=== PATIENT | male | born 1985 | race Caucasian/White ===

== ENCOUNTER 2016-01-15 12:55 | Outpatient (RCR) | payer MEDICAID ==
[~2016-01-15 12:55] MED LIST: ALBU8.5H6 IH; CELE-63 PO; CYCL10TA45 PO; OXYC1TAB12 PO; OXYC60TA7 PO; PRAM0.128 PO; SUVO15TA PO; ZLP10T PO
--- NOTE | 2016-01-17 14:19 | PT/OT/ST INITIAL EVALUATION ---
[facility], [facility]. PHYSICAL/OCCUPATIONAL THERAPY [address] [place] [id number] PLAN OF CARE/ASSESSMENT FOR OUTPATIENT REHABILITATION (Complete for Initial Claims Only) 1. PATIENT'S NAME Roly Steele Jr. 2. ACC. No [id number] 3. REFERRING PHYSICIAN 4. PRIMARY DX Neck and upper back pain 5. SECONDARY DX 6. ONSET DATE 2012 7. REFERRAL DATE Self-referral 01/15/2016 8. SOC. DATE/TIME 01/15/2016 13:25 9. PRIOR LEVEL OF FUNCTION; PERTINENT HISTORY (Prior therapy results, reason for referral.) S: Prior to therapy, the patient did consent to the initial evaluation. The patient is a 30-year-old male who presents to physical therapy with neck and upper back pain that started in 2012. 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 His work requires him to carry and/or lift s 20 to 80 pound load up and down stairs and ladders. 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 The patient does note his pain has progressed significantly over the last 2 years. The pain is rated as a 5 to 7/10 on average, but can increase with activity. 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 Diagnostic tests: He has undergone x-rays and per his report, the x-rays are negative for any significant issues related to his spine. Aggravating factors: The patient notes that his pain is aggravated by bending, lifting, sitting for longer periods of time, as well as using ice. Relieving factors: Include taking Percocet; however this is minimally affective at this time, per his report. Past medical history: Includes stomach related issues and depression, as well as chronic neck and back pain. Patient's goal: The patient's goal is to have his pain go away. 10. INITIAL ASSESSMENT/SAFETY PRECAUTIONS/MEDICAL COMPLICATIONS (Level of function at start of care. Be specific, use objective measures, list problems.) O: APPEARANCE AND OBSERVATION: Observation of the patient's posture with shoulder movement revealed left scapular winging bilaterally, greatest on the left, specifically with shoulder internal rotation. He does demonstrate a rounded shoulder positioning bilaterally, greatest on the left. He also demonstrates significant anterior humeral head movement with shoulder motion. The PT notes the patient has antalgic movement when transitioning from xul-fu-lawclt and pnyrmd-xi-taz, as well as from sitting to standing. SPECIAL TESTING: The patient does have positive median nerve tension test on the right, negative radial, ulnar and median nerve tension test on the left. Negative cervical distraction and compression test, negative alar ligament test. MOBILITY: The patient is hypomobile through T5 through T8, as well as C4 through C6. ACTIVE RANGE OF MOTION: The patient demonstrates no significant active range of motion issues related to the bilateral shoulders, as well as the cervical spine. STRENGTH: Strength was assessed to be 5/5 for bilateral shoulder flexion, abduction, internal and external rotation. TODAY'S TREATMENT: Today's treatment consisted of initiating manual therapy to improve mobility in the thoracic spine, as well as education on stretching exercises with emphasis on not over stretching. 11. INITIAL POC: (Specify procedures, modalities, short and photograph mounter goals) A: The patient presents to physical therapy with chronic neck and upper back pain, which he relates to his job related activities. PROGNOSIS: This patient does have a good prognosis with regular attendance to physical therapy and compliance with him home exercises program, as well as activity modification recommendations. The patient would benefit from physical therapy services to decrease pain improve mobility throughout the cervical and thoracic spine, as well as improve body mechanics with functional work-related tasks. SHORT TERM GOALS TO BE MET IN 2 WEEKS: 1. The patient will report pain no greater than a 4/10 with shoulder movements, as well as transitional movements from sit to supine and supine to sit. 2. The patient will have normalized mobility throughout the cervical and thoracic spine. CRATE REPAIRER GOALS X 4 WEEKS: 1. The patient will demonstrate proper scapular stabilization with work-related lifting tasks. 2. The patient will report being able to return to work-related activities with pain no greater than a 3/10. P: Plan to see this patient 2 times a week for 4 weeks secondary to this frequency working best for his work schedule. Therapeutic interventions will include modalities as needed to address pain and muscle tightness, therapeutic exercise, emphasis on stabilization, neuromuscular reeducation, working on proprioceptive awareness of the shoulders and upper back, functional training, as well as progression of his home exercise program. Thank you for the referral of this patient. 13. PHYSICIAN SIGNATURE ? ON FILE OR ENTER HERE: 15. DATE: I certify the need for these services furnished under this plan of care and if for partial hospitalization. 16. CERTIFICATION FROM THROUGH
[2016-04-16] MEDS ORDERED: AMOX500C5 PO (09:41)
[2016-04-16] MEDS ORDERED: PRCD5U PO (09:41)
[2016-04-16] MEDS ORDERED: ALBU8.5H2 IH (09:46)
== END 2016-03-28 09:25 | disposition home or self-care (01) ==
LOC: PT 12:55
DX: M54.2 Cervicalgia (principal); M54.6 Pain in thoracic spine

== ENCOUNTER 2016-04-16 08:55 | Emergency (ER) | payer MEDICAID ==
[~2016-04-16] VITALS: Ht 182.9 cm; Wt 86.0 kg
[2016-04-16 09:41] LABS: INFLUENZA VIRUS TYPE A ANTIBOD Negative (NEGATIVE); INFLUENZA VIRUS TYPE B ANTIBOD Negative (NEGATIVE)
[2016-04-16 09:56] VITALS: BP 122/86
== END 2016-04-16 09:56 | disposition home or self-care (01) ==
LOC: EDUNIT# 08:55 → ED 08:58
DX: J20.9 Acute bronchitis, unspecified (principal); J01.00 Acute maxillary sinusitis, unspecified; F17.210 Nicotine dependence, cigarettes, uncomplicated
CPT/HCPCS: 87070; 87502; 87651; 99282; 99283

== ENCOUNTER 2016-06-28 21:23 | Emergency (ER) | payer MEDICAID ==
[~2016-06-28] VITALS: Ht 182.9 cm; Wt 86.0 kg
[~2016-06-28 21:23] MED LIST changes: +ALBU8.5H2 IH; +AMOX500C5 PO; +PRCD5U PO
--- OUTSIDE RECORDS SUMMARY | 2016-06-28 21:27 | XMS REPORT | Continuity of Care Document ---
Author Author [facility] Organization [facility] Address Unknown Phone Unavailable Allergies Active Description Code Type Severity Reaction Onset Reported/Identified Relationship to Patient Clinical Status Yes No Known Allergies 624052 3 N/A N/A Medications Problems Date Dx Coded Attending Type Code Diagnosis Diagnosed By 03/12/2015 W M25.571 Ankle pain, right 03/12/2015 W M25.572 Ankle pain, left 03/12/2015 W M79.641 Pain of right hand 03/12/2015 W M79.642 Pain of left hand 07/10/2015 W M25.571 Ankle pain, right 07/10/2015 W M25.572 Ankle pain, left 07/10/2015 W M65.321 Trigger index finger of right hand 07/10/2015 W M65.322 Trigger index finger of left hand 07/10/2015 W M79.641 Pain of right hand 07/10/2015 W M79.642 Pain of left hand Procedures Code [place] [address] X-RAY EXAM OF HAND 03/12/2015 45932 X-RAY EXAM OF ANKLE 03/12/2015 11169 OFFICE CONSULTATION 03/12/2015 Results Encounters ACCT No. Visit Date/Time Discharge Status Pt. Type Provider Facility Loc./Unit Complaint [id number] 03/12/2015 09:30:00 [facility]
--- OUTSIDE RECORDS SUMMARY | 2016-06-28 21:28 | XMS REPORT | Continuity of Care Document ---
Author Author [facility] Organization [facility] Address Unknown Phone Unavailable Allergies Active Description Code Type Severity Reaction Onset Reported/Identified Relationship to Patient Clinical Status Yes No Known Allergies [id number] 3 N/A N/A Medications Problems Date Dx [...] Procedures Code [place] [address] X-RAY EXAM OF HAND 03/12/2015 26486 X-RAY EXAM OF ANKLE 03/12/2015 94614 OFFICE CONSULTATION 03/12/2015 Results Encounters ACCT No. Visit Date/Time Discharge Status Pt. Type Provider Facility Loc./Unit Complaint [id number] 03/12/2015 09:30:00 [facility]
[2016-06-28] MEDS ORDERED: SODIUM CHLORIDE FLUSH 3 ML SYR IV PRN (21:40)
[2016-06-28] MEDS ORDERED: ONDANSETRON 2 MG/ML (Z0FRAN) 2 ML VIAL IV ONE (21:40)
[2016-06-28] MEDS ORDERED: HYDROmorphone 1 MG/ML (DILAUDID) SYRINGE IV ONE (21:40)
[2016-06-28] MEDS: SODIUM CHLORIDE FLUSH 10 ML SYR IV PRN ×2 (21:53→22:07)
[2016-06-28 22:03] LABS: BASOPHILS % (AUTO) 0 % (0-2); EOSINOPHILS # (AUTO) 0.1 10^3uL; EOSINOPHILS % (AUTO) 1 % (0-4); LYMPHOCYTES # (AUTO) 2.2 X10^3; MEAN CORPUSCULAR HEMOGLOBIN 30.1 PG (26.0-34.0); MEAN CORPUSCULAR VOLUME 84 FL (80-100); MONOCYTES # (AUTO) 0.9 X10^3; MONOCYTES % (AUTO) 8 % (3-11); NEUTROPHILS # (AUTO) 7.4 X10^3; NEUTROPHILS % (AUTO) 70 % (51-67); PLATELET COUNT 182 10^3uL (150-450); WHITE BLOOD COUNT 10.59 10^3uL (4.0-11.0)
[2016-06-28 22:06] LABS: MEAN CORPUSCULAR HGB CONC 35.7 g/dL (31.0-37.0)
[2016-06-28 22:15] LABS: ALBUMIN 4.3 g/dL (3.4-5.0); ANION GAP 13.5 MEQ/L (3-15); CALCULATED IONIZED CALCIUM 3.9 mg/dL (3.8-4.6); TOTAL PROTEIN 7.4 g/dL (6.4-8.5)
--- NOTE | 2016-06-28 22:30 | NUR ---
PATIENT REPORT TO Lizeth OVERTON RN.
[2016-06-29] MEDS ORDERED: ORPHENADRINE 60 MG/2 ML (NORFLEX) AMP IV ONE (00:35)
[2016-06-29] MEDS ORDERED: HYDROmorphone 1 MG/ML (DILAUDID) SYRINGE IV ONE (00:35)
[2016-06-29] MEDS ORDERED: ED- CYCLOBENZAPRINE 10 MG (FLEXERIL) 3 TABLETS/BTL PO ONE (00:40)
[2016-06-29] MEDS ORDERED: ED- oxyCODONE/ACETAMINOPHEN 5MG-325MG (PERCOCET) 8 TABLETS/BTL PO ONE (00:40)
[2016-06-29] MEDS ORDERED: CYCL10TA45 PO (00:40)
[2016-06-29] MEDS ORDERED: OXYC1TAB87 PO (00:41)
[2016-06-29 01:14] VITALS: BP 132/102
--- NOTE | 2016-06-29 07:47 | Diagnostic Imaging Report ---
INDICATION: Left rib pain after fall. COMPARISON: None available. TECHNIQUE: 3 views of the left rib. FINDINGS AND IMPRESSION: There is no acute fracture of the left ribs. No pneumothorax or pleural effusion on the left. Left lung is clear. Dictated by: Dictated on workstation # [id number]
--- NOTE | 2016-06-29 07:48 | Diagnostic Imaging Report ---
INDICATION: Abdominal pain after fall. COMPARISON: Lumbar spine radiographs of 11/09/2015. FINDINGS: Lungs are clear. Posterior lower lobes are poorly evaluated on frontal radiograph. No pleural effusion or pneumothorax. Normal cardiomediastinal silhouette. Normal pulmonary vasculature. No free intraperitoneal air. Nonobstructive bowel gas pattern. Normal regional skeleton. IMPRESSION: 1. No acute abnormality in the chest or abdomen by radiography. Dictated by: Dictated on workstation # [id number]
--- NOTE | 2016-06-29 09:01 | Diagnostic Imaging Report ---
PROCEDURE: CT abdomen and pelvis with contrast. TECHNIQUE: Multiple contiguous axial images were obtained through the abdomen and pelvis after administration of intravenous contrast. INDICATION: Right upper quadrant pain after fall. COMPARISON: None available. FINDINGS: Lower chest: The lung bases are clear. No pericardial or pleural effusion. Peritoneum: No free intraperitoneal air or fluid. Liver and biliary system: Liver enhances normally without evidence of acute traumatic injury. The gallbladder is normal. No biliary duct dilation. Spleen and Pancreas: Spleen is normal. The pancreas enhances normally without mass lesion or peripancreatic inflammatory changes. Adrenals: Normal. 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 The left kidney enhances normally and has normal function and excretion. No suspicious renal mass or obstructive uropathy. Urinary bladder is distended without wall thickening or evidence of rupture. GI tract: Stomach is decompressed. No bowel obstruction. No pericolonic inflammatory changes. Low-attenuation submucosal thickening in the colon suggests chronic colitis. Normal appendix. Vasculature and Lymph nodes: Normal caliber aorta. No abdominal or pelvic lymphadenopathy. Musculoskeletal: No acute fracture in the pelvis or lumbar spine. IMPRESSION: 1. No acute traumatic injury in the abdomen or pelvis. 2. Diffuse hypoattenuation of the submucosa of the colon suggests chronic colitis. Dictated by: Dictated on workstation # [id number]
== END 2016-06-29 01:05 | disposition home or self-care (01) ==
LOC: ED 21:24
DX: G89.11 Acute pain due to trauma (principal); R07.81 Pleurodynia; W01.198A Fall on same level from slipping, tripping and stumbling with subsequent striking against other object, initial encounter; Y93.6A Activity, physical games generally associated with school recess, summer camp and children; Y92.007 Garden or yard of unspecified non-institutional (private) residence as the place of occurrence of the external cause; Y99.8 Other external cause status
CPT/HCPCS: 36415; 71100; 74022; 74177; 80053; 83690; 85025; 96374; 96375; 96376; 99284; A9270; J1170; J2360; J2405; Q9967; 99283

== ENCOUNTER 2016-07-22 07:45 | Emergency (ER) | payer MEDICAID ==
[~2016-07-22] VITALS: Ht 182.9 cm; Wt 85.0 kg
[~2016-07-22 07:45] MED LIST changes: +OXYC1TAB87 PO
--- OUTSIDE RECORDS SUMMARY | 2016-07-22 07:49 | XMS REPORT | Continuity of Care Document ---
Author Author [facility] Organization [facility] Address Unknown Phone Unavailable Allergies Active Description Code Type Severity Reaction Onset Reported/Identified Relationship to Patient Clinical Status Yes No Known Allergies 269306 3 N/A N/A Medications Problems Date Dx [...] Procedures Code Description [place] [address] X-RAY EXAM OF HAND 03/12/2015 00622 X-RAY EXAM OF ANKLE 03/12/2015 84875 OFFICE CONSULTATION 03/12/2015 Results Encounters ACCT No. Visit Date/Time Discharge Status Pt. Type Provider Facility Loc./Unit Complaint [id number] 03/12/2015 09:30:00 [facility]
--- OUTSIDE RECORDS SUMMARY | 2016-07-22 07:52 | XMS REPORT | Continuity of Care Document ---
Author Author [facility] Organization [facility] Address Unknown Phone Unavailable Allergies Active Description Code Type Severity Reaction Onset Reported/Identified Relationship to Patient Clinical Status Yes No Known Allergies 809388 3 N/A N/A Medications Problems Date Dx [...] Procedures Code Description [place] [address] X-RAY EXAM OF HAND 03/12/2015 46110 X-RAY EXAM OF ANKLE 03/12/2015 85266 OFFICE CONSULTATION 03/12/2015 Results Encounters ACCT No. Visit Date/Time Discharge Status Pt. Type Provider Facility Loc./Unit Complaint [id number] 03/12/2015 09:30:00 [facility]
[2016-07-22] MEDS ORDERED: CPR500T PO (09:00)
[2016-07-22] MEDS ORDERED: NAPR550T PO (09:00)
[2016-07-22] MEDS ORDERED: TETANUS, DIPTHERIA, PERTUSSIS (ADACELL) VACCINE 0.5 ML VIAL IM ONE (09:05)
--- NOTE | 2016-07-22 09:12 | Diagnostic Imaging Report ---
INDICATION: Patient stepped on a gordon screw. TECHNIQUE: AP and lateral views of the left foot were obtained. FINDINGS: No acute fracture or acute bony abnormality is seen. There is a hallux valgus deformity. There is no radiopaque foreign body. IMPRESSION: No evidence of fracture or radiopaque foreign body. A hallux valgus deformity is noted. Dictated by: Dictated on workstation # [id number]
[2016-07-22 09:19] VITALS: BP 111/73
== END 2016-07-22 09:15 | disposition home or self-care (01) ==
LOC: ED 07:47
DX: S91.332A Puncture wound without foreign body, left foot, initial encounter (principal); S93.502A Unspecified sprain of left great toe, initial encounter; W18.31XA Fall on same level due to stepping on an object, initial encounter; Y92.009 Unspecified place in unspecified non-institutional (private) residence as the place of occurrence of the external cause; F17.210 Nicotine dependence, cigarettes, uncomplicated
CPT/HCPCS: 90471; 90715; 99283